=== PATIENT | female | born 1945 | race Caucasian/White ===

== ENCOUNTER 2016-11-20 12:54 | Emergency (ER) | payer MEDICARE ==
[~2016-11-20] VITALS: Ht 172.7 cm; Wt 131.5 kg
[~2016-11-20 12:54] MED LIST: ASPIRIN E.C.325 MG PO; ATENOLOL100 MG PO; CLARITIN10 MG PO; DAYPRO600 M1 PO; DULERA100 INH; GABAPENTIN300 MG PO; HYDR12.5C PO; HYDROCHLOROTH12.5 MG PO; HYDROCODONE BIT1 T11 PO; LAMICTAL100 MG PO; LASIX40 MG PO; LOMOTIL 0.025 M1 TA1 PO; LOW DOSE ASPIRI81 MG PO; MACROBID100 M1 PO; MOTRIN800 MG PO; NEURONTIN300 MG PO; NORCO 325 MG-51 TAB PO; NORFLEX100 MG PO; PERCOCET 325 MG1 TA4 PO; PHENERGAN25 M1 PO; PREDNICOT20 MG PO; TRAMADOL HCL50 MG PO; TRAMADOL HYDROC50 MG PO; VICODIN 5/500 505 MG PO; VICODIN 500 MG-1 TAB PO; VITAMIN D32000 I1 PO; VITAMIN D50000 I2 PO; ZOLOFT50 MG PO
[2016-11-20] MEDS ORDERED: NEURONTIN300 MG PO (13:13)
[2016-11-20] MEDS ORDERED: LOSARTAN POTASS50 M1 PO (13:14)
[2016-11-20] MEDS ORDERED: DULOXETINE HCL30 MG PO (13:14)
== END 2016-11-20 15:15 | disposition home or self-care (01) ==
LOC: ED 12:54
DX: S00.83XA Contusion of other part of head, initial encounter (principal); S00.81XA Abrasion of other part of head, initial encounter; M25.561 Pain in right knee; Z90.710 Acquired absence of both cervix and uterus; Z98.51 Tubal ligation status; Z79.899 Other long term (current) drug therapy; Z88.1 Allergy status to other antibiotic agents; Z96.651 Presence of right artificial knee joint; W18.09XA Striking against other object with subsequent fall, initial encounter; Y93.89 Activity, other specified; Y92.096 Garden or yard of other non-institutional residence as the place of occurrence of the external cause; Y99.9 Unspecified external cause status

== ENCOUNTER → 2016-12-18 | Outpatient (CLI) | payer MEDICARE ==
[~2016-12-18] MED LIST changes: +DULOXETINE HCL30 MG PO; +LOSARTAN POTASS50 M1 PO
== END | disposition home or self-care (01) ==
LOC: US 18:28
DX: R60.0 Localized edema (principal)

== ENCOUNTER 2017-04-05 13:53 | Inpatient (IN) | payer MEDICARE ==
[~2017-04-05] VITALS: Ht 177.8 cm; Wt 134.8 kg
--- NOTE | ~2017-04-05 | ST ---
[place], [place] EXERCISE STRESS TEST REPORT NAME: KAUR LANDON UNIT #: [id number] ROOM: 507 DOCTOR: ANTONIO KILGORE MD BIRTHDATE: [birth year] DOS: 04/06/2017 LEXISCAN STRESS EKG REPORT REFERRING PHYSICIAN: Dr. Jackson. INDICATION: Chest pain. The patient underwent standard protocol Lexiscan stress EKG. The patient's baseline EKG showed sinus bradycardia with a heart rate of [address]-T wave changes. Baseline blood pressure is 128/72. Peak heart rate was 74 with a blood pressure 110/68. The patient experienced no chest pain, no EKG changes and no arrhythmias. SUMMARY OF FINDINGS: Unremarkable Lexiscan stress EKG. Please see separate report for perfusion scan results. ANTONIO KILGORE MD CM:STRESS:EXERCISE STRESS TEST REPORT [id number] ANTONIO KILGORE MD
--- NOTE | ~2017-04-05 | PR ---
[place], [place] PROGRESS NOTE NAME: KAUR LANDON UNIT #: [id number] ROOM: 507 DOCTOR: SUSHIL MCCANN MD BIRTHDATE: [birth year] DOS: SUBJECTIVE: The patient is doing fine without any complaints. Denies any chest pains, palpitations or shortness of breath. OBJECTIVE: VITAL SIGNS: Graphic trend shows a pressure 142/68, pulse of 50, respirations 18, temperature 97.3. LUNGS: Diminished breath sounds. No wheezes, rales or rhonchi heard. HEART: Regular. ABDOMEN: Obese, soft, nontender. EXTREMITIES: Without any edema. The rebound tenderness that was noticed on the left side of the chest seems to be resolving slowly. Stress test was negative. CT of the chest showed no evidence of PE. ASSESSMENT AND PLAN: 1. Precordial chest pain. Stress test was performed, which was negative. 2. Benign hypertension, controlled. 3. Atypical chest pain, which appears to be musculoskeletal. It resolved with IV Toradol for 48 hours. The patient is advised to use ____ and local moist heat application. 4. Recent urinary tract infection. She does not need to take any more Bactrim. Urine culture final with no bacterial growth. SUSHIL MCCANN MD CM:PNTRANS [id number] SUSHIL MCCANN MD 04/08/172222 interface
--- NOTE | ~2017-04-05 | DS ---
[place], [place] DISCHARGE SUMMARY NAME: KAUR LANDON UNIT #: [id number] ROOM: 507 DOCTOR: SUSHIL MCCANN MD BIRTHDATE: [birth year] DOS: 04/08/2017 DIAGNOSES: 1. Precordial chest pain with risk factors. Because of her risk factors, the patient underwent a stress test, which was negative. 2. Atypical chest pain. 3. Benign hypertension. 4. History of urinary incontinence, bladder stimulation procedure. HOSPITAL COURSE: A 72-year-old patient who comes in with complaints of chest pain, left-sided with radiation to the back. The patient was seen in the Emergency Room. EKG showed no abnormalities. The patient was admitted, Lovenox, nitrates were started. Cardiology consultation was obtained. When I examined the patient, the symptoms appeared to be musculoskeletal with a lot of rebound tenderness over the left chest wall, so Toradol was started and local moist heat was given. The patient is stable and improved and is not having any new complaints. Stress test has come back negative. Echocardiogram is not available. CT of the chest was negative. The troponin all 3 sets were done, which were negative. Plan is to discharge her to home today. Follow up as an outpatient. SUSHIL MCCANN MD CM:DISCHARG [id number] SUSHIL MCCANN MD 04/08/17 1734 interface
--- NOTE | ~2017-04-05 | PR ---
[place], [place] PROGRESS NOTE NAME: KAUR LANDON UNIT #: [id number] ROOM: 507 DOCTOR: SUSHIL MCCANN MD BIRTHDATE: [birth year] DOS: SUBJECTIVE: The patient is doing fine without any complaint. Denies any chest pains, palpitations or shortness of breath. OBJECTIVE: VITAL SIGNS: Graphic trend shows a pressure 137/68, pulse of 68, respirations 18, temperature 98.4. LUNGS: Clear. The rebound tenderness in the chest wall appears to be much improved. HEART: Regular. ABDOMEN: Obese, soft, nontender. EXTREMITIES: Without any edema. ASSESSMENT AND PLAN: 1. Chest pain, precordial, most likely atypical, improving with Toradol to patient. 2. Benign hypertension, controlled. She does have risk factors for coronary artery disease, is awaiting a stress test this morning. Plan is to discharge her to home tomorrow. SUSHIL MCCANN MD CM:PNTRANS [id number] SUSHIL MCCANN MD 04/07/17 2333 interface
--- NOTE | ~2017-04-05 | WRIGHTHP ---
[place], [place] PATIENT HISTORY AND PHYSICAL EXAM NAME: KAUR LANDON [facility] #: [id number] UNIT #: [id number] ROOM: 507 DOCTOR: SUSHIL MCCANN MD BIRTHDATE: [birth year] DOS: 04/05/2017 HISTORY OF PRESENT ILLNESS: She is 72-year-old. The patient is very well known to us. The patient states that she started developing left-sided chest pain, radiating to her back. The pain was severe and was worried that it was her heart and so decided to come into the Emergency Room. She denies having any fever, any chills, any nausea, any emesis. Does not have any shortness of breath. She was on Bactrim, which she has taken 5 days of medicine so far and she is awaiting a bladder surgery. PAST MEDICAL HISTORY: Significant for: 1. Benign hypertension. 2. Peripheral neuropathy. 3. History of chronic gastritis. 4. Hysterectomy. 5. Bladder prolapse with chronic urinary incontinence, awaiting a bladder ____ procedure. MEDICATIONS: Breo Ellipta 100/25 one inhalation daily, aspirin 81 daily, atenolol 100 daily, vitamin D 50,000 units a week, duloxetine 30 daily, gabapentin 300 t.i.d., loratadine 10 daily, losartan 50 daily, ____ 50 at bedtime, Bactrim 1 tablet twice a day. SOCIAL HISTORY: Nonsmoker, does not use any alcohol. PHYSICAL EXAMINATION: GENERAL: She is awake and alert and oriented. VITAL SIGNS: Graphic trend shows blood pressure 130/60, pulse of 56, respirations 18, temperature 98.1. LUNGS: Clear. HEART: Regular. ABDOMEN: Obese, soft. EXTREMITIES: Without any edema. MUSCULOSKELETAL: A lot of rebound tenderness over the chest and her back area. ASSESSMENT AND PLAN: 1. Precordial chest pain. The patient has risk factors being hypertensive. The patient has had a cardiology consultation. Rule out myocardial infarction protocol has been ordered and will be scheduled for a stress test. 2. Atypical chest pain. This appears to be musculoskeletal. IV Toradol will be given for 48 hours local moist heat application will be ordered. 3. Benign hypertension, controlled. 4. Recent urinary tract infection. She has finished 5 days of antibiotics. We will discontinue Bactroban and do urine culture. [place], [place] PATIENT HISTORY AND PHYSICAL EXAM NAME: KAUR LANDON UNIT #: [id number] ROOM: 507 DOCTOR: SUSHIL MCCANN MD BIRTHDATE: [birth year] SUSHIL MCCANN MD CM:HISPHYS:PATIENT HISTORY AND PHYSICAL EXAMINATION [phone] SUSHIL MCCANN MD 04/06/172022 interface
[~2017-04-05 13:53] MED LIST changes: -ATENOLOL100 MG PO; +TENORMIN100 MG PO
[2017-04-05 14:03] VITALS: BP 176/75
[2017-04-05] MEDS ORDERED: BREO ELLIPTA 11 EACH INH (14:11)
[2017-04-05] MEDS ORDERED: VITAMIN D50000 UNIT PO ×2 (14:12→16:53)
[2017-04-05] MEDS ORDERED: [UNRECOGNIZED DRUG - REMARK] PO (14:13)
[2017-04-05 14:23] LABS: BASO # 0.1 10*3/uL (0.0-0.1); BASO % 0.7 % (0.0-1.0); EOS # 0.2 10*3/uL (0.0-0.4); EOS % 1.6 % (1.0-4.0); HEMATOCRIT 43.6 % (37.0-47.0); HEMOGLOBIN 14.1 g/dl (12.0-16.0); LYMPH # 1.2 10*3/uL (1.3-4.4); LYMPH % 11.3 % (27.0-41.0); MEAN CELL VOLUME 99.1 fl (81.0-99.0); MEAN CORPUSCULAR HGB CONC 32.3 g/dl (33.0-37.0); MEAN PLATELET VOLUME 9.6 fl (9.6-12.3); MONO # 1.1 10*3/uL (0.1-1.0); MONO % 9.9 % (3.0-9.0); NEUT # 8.2 10*3/uL (2.3-7.9); PLATELET COUNT AUTOMATED 276 10*3/uL (130-400); WHITE BLOOD COUNT 10.8 10*3/uL (4.8-10.8)
[2017-04-05 14:30] VITALS: BP 168/70
[2017-04-05 14:33] LABS: ACT PARTIAL THROMBO TIME 29.8 SECONDS (20.8-31.5)
[2017-04-05 14:39] LABS: ALBUMIN 3.3 gm/dl (3.1-4.5); ALKALINE PHOSPHATASE 78 U/L (45-117); BUN 22 mg/dl (7-24); CHLORIDE 103 mmol/L (98-107); MAGNESIUM 2.2 mg/dL (1.5-2.1); POTASSIUM 4.8 mmol/L (3.5-5.1); SGOT/AST 15 IU/L (3-35); SGPT/ALT 24 U/L (12-78); SODIUM 138 mmol/L (136-145); TOTAL PROTEIN 7.4 gm/dL (6.4-8.2)
[2017-04-05 14:45] LABS: TROPONIN I < 0.015 ng/ml (<0.045)
[2017-04-05 15:06] VITALS: BP 128/66
[2017-04-05 15:57] VITALS: BP 147/66
[2017-04-05 16:30] VITALS: BP 148/70
--- NOTE | 2017-04-05 16:35 | NUR ---
A 72, admitted to 5E, under the services of SUSHIL Schwartz MD with a diagnosis of CHEST PAIN/HTN. Chief complaint is MID STERNAL CHEST PAIN, RADIATES INTO LEFT SCAPULA/LEFT SHOULDER... CONSTANT PAIN, MORE LIKE HEAVINESS. WAS DIAPHORETIC AND NAUSEATED. Patient arrived via stretcher from ER. Monitor applied. Initial assessment completed. Vital signs taken and recorded. SUSHIL SCHWARTZ MD notified of admission to the unit. Orders received. See assessment for past medical history, medications and allergies. Patient and/or family oriented to unit. [address] visitation policy reviewed. Clothing/patient valuable form completed. JENNIFER EMMANUEL
--- NOTE | 2017-04-05 16:50 | NUR ---
MEDS VERIFIED WITH PHARMACY.
[2017-04-05] MEDS ORDERED: MYRBETRIQ50 M1 PO (16:51)
[2017-04-05] MEDS ORDERED: SEPTDS PO (16:52)
--- NOTE | 2017-04-05 17:16 | NUR ---
SPOKE WITH DR SMITH FROM CARDIOLOGY. HE ADVISED TO KEEP PATIENT NPO AFTER MIDNIGHT.
--- NOTE | 2017-04-05 17:19 | NUR ---
SPOKE WITH DR MCCANN
[2017-04-05 20:00] VITALS: BP 93/76
--- NOTE | 2017-04-05 23:39 | NUR ---
SPOKE TO AT THIS TIME REGARDING PATIENT'S REQUEST FOR PAIN MEDICATION. PER , PATIENT CAN HAVE A ONE TIME DOSE OF DILAUDID IV 0.5 MG.
[2017-04-06] VITALS (7 sets, daily range): BP systolic 114–142; BP diastolic 51–72
--- NOTE | 2017-04-06 00:10 | NUR ---
IV DILAUDID ADMINISTERED SLOWLY PER ONE TIME ORDER FOR PT C/O MOSTLY LEFT BACK SHOULDER PAIN 01/29. WILL MONITOR EFFECTIVENESS. CALL LIGHT LEFT IN REACH.
--- NOTE | 2017-04-06 00:59 | NUR ---
EARLIER MEDICATION APPEARS EFFECTIVE. PATIENT ASLEEP IN BED WITH EYES CLOSED. NO S/S OF DISTRESS NOTED. ON 3L NC. WILL MONITOR. CALL LIGHT LEFT IN REACH.
--- NOTE | 2017-04-06 08:30 | NUR ---
Commodities Broker in to talk to patient. Patient states lives at HOME with HER DAUGHTER AND 2 GRAND SONS. There are 0 steps in the home. Physician: DR MCCANN Pharmacy: [facility] Home health services: NONE Patient's level of ADLs: MINIMAL ASSIST Patient has working utilities: YES DME: [facility] HAS WALKER BUT NOT USING Follow-up physician's appointment after d/c: PREFERS TO MAKE HER OWN APPT Does patient want to access PORTAL?: Discharge plan HOME. JIGAR ACOSTA
--- NOTE | 2017-04-06 08:49 | NUR ---
PATIENT RESTING IN BED CALL LIGHT IN REACH PATIENT HAS REMAINED AFEBRILE THEROYGHOUT THE NIGHT.
--- NOTE | 2017-04-06 13:00 | NUR ---
PATIENT IS VERY STRONGLY VOCALIZING THAT SHE DOES NOT WANT A FORGEIN DR TO LOOK AT THER LEG PATIENT STATED " I WILL STAND UP ON THIS DAMN LEG AND CRACK THAT SON OF A BIN THE FHEAD WITH THIS THING. I AM TIRED OF THESE DOCOTRS THEY DON'T KNOW WHAT THE H THEY ARE DOING" I TRIED TO EXPLAIN TO THE PATIENT THAT SHE HAS NOT SEEN DR HUYNH YET AND HE WAS VERY NICE AND A GREAT DOCTOR. PATIENT TOLD ME "YOU GO STRAIGHT TO [facility]"
--- NOTE | 2017-04-06 14:54 | NUR ---
CONTACTED DR ADAM REGARDING THE PATIENT NOT WANTING A FORGEIN DOCOTR SEEING HER. I REQUESTED THAT DR KANG BE CONSULTED DR ADAM INFORMED ME THAT DR KANG WAS NOT MANAGER FORMS TOMORROW I NOTIFIED HER THAT HE WAS IN SURGERY AND HE WAS AVAILABLE. DR ADAM STATED THAT THAT ORIGINALLY DIDN'T WANT TO CONSULT SURGERY BUT AT THIS TIME DR HUYNH IS GOING TO SEE THE PATIENT IN THE MORNING. HE IS AWARE OF THE PATIENT AND HER STATUS
--- NOTE | 2017-04-06 20:00 | NUR ---
RESTING IN BED WITH EYES CLOSED. RESPIRATIONS EASY. LUNGS DIMINISHED, CLEAR. PULSE OX 96% 2L, O2 REMOVED AT PATIENT REQUEST SHE DOES NOT USE AT HOME AND DENIES SOB. DENIES PAIN AT PRESENT. CALL LIGHT WITHIN REACH. NO VOICED COMPLAINTS
--- NOTE | 2017-04-06 22:00 | NUR ---
REFUSED [id number]
[2017-04-07] VITALS: BP 125/61
--- NOTE | 2017-04-07 | NUR ---
RESTING WITH EYES CLOSED. RESPIRATIONS EASY. VSS. PULSE OX 94% RA. CALL LIGHT WITHIN REACH. NPO STATUS MAINTAINED FOR TESTING
--- NOTE | 2017-04-07 03:00 | NUR ---
SLEPT THROUGHOUT NIGHT WITH NO DISTRESS NOTED. RESPIRATIONS EASY. VSS. NPO STATUS MAINTAINED FOR TESTING THIS AM.
--- NOTE | 2017-04-07 06:00 | NUR ---
SLEPT THROUGHOUT NIGHT. NO VOICED COMPLAINTS. NO DISTRESS NOTED
[2017-04-07 08:00] VITALS: BP 142/66
--- NOTE | 2017-04-07 11:30 | NUR ---
PATIENT DOWN TO CARDIOLOGY FOR STRESS TEST
--- NOTE | 2017-04-07 11:45 | NUR ---
INFORMED CONSENT OBTAINED FOR LEXISCAN NUCLEAR STRESS TEST WITH DR. KILGORE. RESTING EKG SINUS ALEXIS WITH A RESTING HR OF 50 WITH BP OF 128/72. LUNGS CLEAR WITH SPO2 OF 95% ON ROOM AIR. PT COMPLETED A 1:00 LEXISCAN PROTOCOL RECEIVING LEXISCAN 0.4 MG IV OVER 10 SECONDS. HAD NO CHEST PAIN OR ANY EKG CHANGES. DID HAVE C/O "STOMACH DISCOMFORT" THAT WAS RELIEVED IN RECOVERY. HAD A PEAK HR OF 74 WITH BP OF 110/70. LAST RECOVERY HR OF 68 WITH BP OF 110/68. AWAITING SCANNING IN STABLE CONDITION.
[2017-04-07 13:30] VITALS: BP 137/68
--- NOTE | 2017-04-07 14:00 | NUR ---
PATIENT RETURNED TO THE FLOOR. NO PROBLEMS NOTED
[2017-04-07 16:00] VITALS: BP 128/70
--- NOTE | 2017-04-07 17:30 | NUR ---
PATIENT WITH LEAKING IV SITE. NEW IV SITE PLACED IN RIGHT AC, CLEANED WITH CHLOROPREP, 20 GA ANGIOCATH, AND SECURED WITH TAPE. IV LEFT ARM REMOVED, NO BLEEDING NOTED DRESSING PLACED.
--- NOTE | 2017-04-07 17:45 | NUR ---
PATIENT TO CT FOR CT OF THE CHEST. IV PLACED IN RIGHT AC
--- NOTE | 2017-04-07 18:00 | NUR ---
PATIENT RETURNED TO THE FLOOR, NO PROBLEMS NOTED
[2017-04-07 20:00] VITALS: BP 129/58
--- NOTE | 2017-04-07 20:00 | NUR ---
PT. AWAKE, ALERT, AND ORIENTED X 3. PT. LYING IN BED AT THIS TIME. PT. DENIES SOB, CP. C/O 2/10 PAIN TO LEFT SHOULDER AREA, K-PAD CURRENTLY BEING USED. CALL LIGHT WITHIN REACH, BED IN LOWEST POSITION, WHEELS LOCKED. SEE SHIFT ASSESSMENT.
[2017-04-08] VITALS: BP 103/50
--- NOTE | 2017-04-08 05:54 | NUR ---
PT. WAS TACHYCARDIC UPON MOVING. ORTHOS PERFORMED AT THIS TIME WAS NEGATIVE.
[2017-04-08 06:21] LABS: BASO # 0.1 10*3/uL (0.0-0.1); BASO % 0.8 % (0.0-1.0); EOS # 0.3 10*3/uL (0.0-0.4); EOS % 3.7 % (1.0-4.0); HEMATOCRIT 43.4 % (37.0-47.0); HEMOGLOBIN 14.1 g/dl (12.0-16.0); LYMPH # 1.3 10*3/uL (1.3-4.4); MEAN CELL VOLUME 100.5 fl (81.0-99.0); MEAN CORPUSCULAR HGB 32.6 pg (27.0-31.0); MEAN CORPUSCULAR HGB CONC 32.5 g/dl (33.0-37.0); MONO # 0.7 10*3/uL (0.1-1.0); MONO % 9.7 % (3.0-9.0); NEUT # 5.2 10*3/uL (2.3-7.9); NEUT % 68.4 % (47.0-73.0); PLATELET COUNT AUTOMATED 273 10*3/uL (130-400); RED BLOOD COUNT 4.32 10*6/uL (4.10-5.10); RED CELL DISTRI WIDTH 14.9 % (0-14.5); WHITE BLOOD COUNT 7.7 10*3/uL (4.8-10.8)
[2017-04-08 06:53] LABS: CREATININE 0.83 mg/dL (0.55-1.02)
[2017-04-08 08:00] VITALS: BP 142/68
--- NOTE | 2017-04-08 10:58 | NUR ---
CCDIS Discharge instructions reviewed with patient/family. Patient receptive and verbalizes understanding. Follow-up care arranged. Written instructions given to patient/family. ALBAN TERAN
== END 2017-04-08 10:58 | disposition home or self-care (01) | DRG 313 ==
LOC: ED 13:53 → EDHOLD 15:26 → 5E 15:26
PROVIDERS: Emergency Medicine; ADMIT Internal Medicine
PROC: 4A02XM4 Measurement of Cardiac Total Activity, External Approach (ICD-10-PCS; principal; 2017-04-07)
PROC: 3E073KZ Introduction of Other Diagnostic Substance into Coronary Artery, Percutaneous Approach (ICD-10-PCS; principal; 2017-04-07)
DX: R07.89 Other chest pain (principal); I10 Essential (primary) hypertension; R07.2 Precordial pain; R32 Unspecified urinary incontinence; K29.50 Unspecified chronic gastritis without bleeding; Z90.710 Acquired absence of both cervix and uterus; Z88.1 Allergy status to other antibiotic agents; Z98.51 Tubal ligation status; Z82.49 Family history of ischemic heart disease and other diseases of the circulatory system; Z83.3 Family history of diabetes mellitus; Z87.440 Personal history of urinary (tract) infections; Z79.899 Other long term (current) drug therapy

== ENCOUNTER 2017-04-15 11:46 | Emergency (ER) | payer MEDICARE ==
[~2017-04-15] VITALS: Ht 177.8 cm; Wt 136.1 kg
[~2017-04-15 11:46] MED LIST changes: +BREO ELLIPTA 11 EACH INH; +MYRBETRIQ50 M1 PO; +SEPTDS PO; +VITAMIN D50000 UNIT PO; +[UNRECOGNIZED DRUG - REMARK] PO
== END 2017-04-15 14:48 | disposition home or self-care (01) ==
LOC: ED 11:46
DX: S92.335A Nondisplaced fracture of third metatarsal bone, left foot, initial encounter for closed fracture (principal); M25.572 Pain in left ankle and joints of left foot; Z88.1 Allergy status to other antibiotic agents; Z88.8 Allergy status to other drugs, medicaments and biological substances; Z90.710 Acquired absence of both cervix and uterus; Z90.49 Acquired absence of other specified parts of digestive tract; W20.8XXA Other cause of strike by thrown, projected or falling object, initial encounter; Y93.89 Activity, other specified; Y92.89 Other specified places as the place of occurrence of the external cause; Y99.8 Other external cause status

== ENCOUNTER → 2017-11-04 | Outpatient (CLI) | payer OTHER | END | disposition home or self-care (01) | LOC: MAMMO 09:34 | DX: Z12.31 Encounter for screening mammogram for malignant neoplasm of breast (principal) ==

== ENCOUNTER 2017-11-18 11:47 | Emergency (ER) | payer OTHER ==
[~2017-11-18] VITALS: Ht 175.2 cm; Wt 136.1 kg
== END 2017-11-18 14:20 | disposition home or self-care (01) ==
LOC: ED 11:47
DX: S09.90XA Unspecified injury of head, initial encounter (principal); I10 Essential (primary) hypertension; Z88.1 Allergy status to other antibiotic agents; Z79.899 Other long term (current) drug therapy; W01.0XXA Fall on same level from slipping, tripping and stumbling without subsequent striking against object, initial encounter; Y93.89 Activity, other specified; Y92.89 Other specified places as the place of occurrence of the external cause; Y99.8 Other external cause status

== ENCOUNTER → 2017-12-07 | Outpatient (CLI) | payer OTHER ==
[2017-12-07 10:29] LABS: CREATININE 0.83 mg/dL (0.55-1.02)
== END ==
LOC: LAB 09:36
PROVIDERS: Internal Medicine
DX: Z31.83 Encounter for assisted reproductive fertility procedure cycle (principal); R06.02 Shortness of breath

== ENCOUNTER → 2017-12-08 | Outpatient (CLI) | payer OTHER | END | disposition home or self-care (01) | LOC: US 12:50 | DX: I73.9 Peripheral vascular disease, unspecified (principal); M79.89 Other specified soft tissue disorders ==

== ENCOUNTER → 2017-12-11 | Outpatient (CLI) | payer OTHER | END | disposition home or self-care (01) | LOC: CT 12-08 14:00 | DX: R06.02 Shortness of breath (principal); R05 Cough; Z75.0 Medical services not available in home; Z90.710 Acquired absence of both cervix and uterus; Z90.49 Acquired absence of other specified parts of digestive tract ==

== ENCOUNTER → 2017-12-17 | Outpatient (CLI) | payer OTHER | END | disposition home or self-care (01) | LOC: CARD 01:01 | DX: I34.8 Other nonrheumatic mitral valve disorders (principal) ==

== ENCOUNTER 2018-01-06 13:04 | Inpatient (IN) | payer OTHER ==
[2018-01-06] VITALS (7 sets, daily range): BP systolic 125–152; BP diastolic 47–64
[~2018-01-06] VITALS: Ht 152.4 cm; Wt 140.2 kg
--- NOTE | ~2018-01-06 | CON ---
[place], [place] REPORT OF CONSULTATION NAME: KAUR LANDON UNIT #: [id number] ROOM: 505 DOCTOR: ANGELO DELATORRE MD BIRTHDATE: [birth year] DOS: 01/07/2018 HISTORY OF PRESENT ILLNESS: This is a 73-year-old -[place] woman with a history of hypertension, morbid obesity who has never had a heart attack or heart failure or stroke. She has never had cancer or COPD. She does have DJD and had hip replacement in the remote past and has had urinary incontinence. She does not smoke. She has never smoked cigarettes, does not use alcoholic beverages. She developed left arm pain 2 days ago and through the night, she had problems because when she moved her left shoulder, it however heard more. Yesterday morning, it was bothering her much more and it went to the left anterior part of the chest. She has never had this kind of symptom before and never had any chest pain or palpitation with exertion, but does have shortness of breath with exertion because of morbid obesity. She has not had any PND, orthopnea, or swelling of the lower extremities and no loss of consciousness. HOME MEDICATIONS: Included Breo-Ellipta, aspirin, atenolol 100 mg daily, duloxetine 30 mg daily, furosemide 40 mg daily, gabapentin 300 t.i.d., loratadine 10 mg daily, losartan 50 daily and Mirabegron 50 mg daily. PHYSICAL EXAMINATION: GENERAL: The patient who is moderately obese. She is alert, oriented, not in any distress complexion is fine. There is no cyanosis or jaundice. VITAL SIGNS: Pulse is 60 regular, blood pressure 140/71. NECK: Normal JVP. No bruit in the neck. HEART: There is no cardiomegaly, no murmurs are present. EXTREMITIES: Pedal pulses are palpable. She has 1+ pretibial edema. RESPIRATORY: Breath sounds are diminished mildly, but no adventitious sounds are present. ABDOMEN: Large and supple. LABORATORY DATA: Three ECGs have shown normal sinus rhythm with a complete right bundle-branch block and mild left axis deviation, but no ST-T wave abnormality. Troponin I levels are also normal. I looked at the chest x-ray and it is under penetrated picture and I do not think there is any obvious pulmonary congestion. IMPRESSION: This patient with some risk factors for coronary artery disease, had very atypical chest pain. Her anterior part of the left shoulder is quite tender. I think there may be mild bicipital tendinitis as well. She has atypical chest pain and I think this is probably noncardiac. A Lexiscan Cardiolite study was performed today and I will take a look at the images and further decision will be made upon the findings. I thank you for this consult. [place], [place] REPORT OF CONSULTATION NAME: KAUR LANDON UNIT #: [id number] ROOM: [facility] DOCTOR: ANGELO DELATORRE MD BIRTHDATE: [birth year] ANGELO DELATORRE MD CM:CONSTR:REPORT OF CONSULTATION 1139 01/07/18 192 interface
--- NOTE | ~2018-01-06 | WRIGHTHP ---
[place], [place] PATIENT HISTORY AND PHYSICAL EXAM [id number] UNIT #: [id number] ROOM: 505 DOCTOR: SUSHIL MCCANN MD BIRTHDATE: [birth year] DOS: 01/06/2018 HISTORY OF PRESENT ILLNESS: The patient is 72 years old, very well known to me, comes in with complaints of chest pain. 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 The patient denies having any nausea, any emesis, any fever or chills, does not have any cough or sputum production. She did not get any relief up to come into the Emergency Room, but with Toradol, the pain did get better. PAST MEDICAL HISTORY: Significant for; 1. History of chest pain with negative workup in March 2017. 2. Benign hypertension. 3. Urinary incontinence. 4. History of bladder scan procedure. 5. History of hysterectomy. 6. History of degenerative joint disease, status post hip replacement. 7. History of LVH. 8. History of peripheral neuropathy, history of falls. MEDICATIONS: She is currently on are aspirin 81 daily, atenolol 100 daily, duloxetine 30 daily, Lasix 40 daily, gabapentin 300 t.i.d., loratadine 10 daily, losartan 50 daily, Myrbetriq 50 at bedtime. SOCIAL HISTORY: Nonsmoker, does not use any alcohol. PHYSICAL EXAMINATION: GENERAL: The patient is awake and alert and oriented. VITAL SIGNS: Graphic trend shows a pressure 143/56, pulse of 50, respirations 20, temperature 98.2. LUNGS: Diminished breath sounds. No wheezes, rales or rhonchi heard. HEART: Regular. ABDOMEN: Obese, soft, nontender. EXTREMITIES: Without any edema or rash noticed in the right leg, which is red and raised. ASSESSMENT AND PLAN: 1. Precordial chest pain, rule out myocardial infarction protocol was initiated. Cardiology consultation. Echocardiogram was done recently, which was within normal limits. The patient is scheduled for a stress test. We will wait and see what the stress shows for further treatment plan. 2. Benign hypertension, controlled. 3. Generalized anxiety disorder. The patient has been under the major stressor recently, could be precipitated with event. A low dose of Xanax was given. [place], [place] PATIENT HISTORY AND PHYSICAL EXAM NAME: KAUR LANDON UNIT #: [id number] ROOM: [facility] DOCTOR: SUSHIL MCCANN MD BIRTHDATE: [birth year] SUSHIL MCCANN MD CM:HISPHYS:PATIENT HISTORY AND PHYSICAL EXAMINATION 0 2 SUSHIL MCCANN MD 01/07/18 0832 interface
--- NOTE | ~2018-01-06 | EKG ---
[place], [place] ELECTROCARDIOGRAM REPORT NAME: KAUR LANDON UNIT #: [id number] ROOM: [facility] DOCTOR: FIDELINA DRAFT REPORT BIRTHDATE: [birth year] [facility] Test Date: 2018-01-06 Test Time: 15:27:38 Pat Name: KAUR LANDON Department: Room: Gender: F [employer]: : 1945 Requested By: GINGER ORDAZ Order Number: [id number] Reading MD: Stu Reed MD Measurements Intervals [place] Rate: 53 P: 17 HI: 181 QRS: -27 QRSD: 143 T: 7 QT: 445 QTc: 418 Interpretive Statements Sinus rhythm Atrial premature complexes Right bundle branch block Left ventricular hypertrophy Electronically Signed On 01-12-2018 4:41:26 PDT by Stu Reed MD CM:EKGRPT:ELECTROCARDIOGRAM REPORT [id number] GINGER KITCHEN DRAFT REPORT GINGER ORDAZ MD
--- NOTE | ~2018-01-06 | EKG ---
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
--- NOTE | ~2018-01-06 | ST ---
[place], [place] EXERCISE STRESS TEST REPORT NAME: KAUR LANDON UNIT #: [id number] ROOM: [facility] DOCTOR: SUSHIL MCCANN MD BIRTHDATE: [birth year] DOS: LEXISCAN STRESS TEST REASON: Evaluation of chest pain. DESCRIPTION OF PROCEDURE: After explaining procedure and obtaining consent, the patient was subjected to Jesus protocol. Resting heart rate was 74 with a blood pressure of 162/84. EKG showed sinus, nonspecific ST-T wave changes. The patient did not have any arrhythmias or chest pain during the infusion. After Lexiscan infusion was over, the patient was injected with Cardiolite and stress images were taken. ASSESSMENT AND PLAN: Lexiscan stress test without any ST-T wave changes. Cardiolite images pending. SUSHIL MCCANN MD CM:STRESS:EXERCISE STRESS TEST REPORT [id number] SUSHIL MCCANN MD
--- NOTE | ~2018-01-06 | EKG ---
[place], [place] ELECTROCARDIOGRAM REPORT NAME: KAUR LANDON UNIT #: [id number] ROOM: [facility] DOCTOR: FIDELINA DRAFT REPORT BIRTHDATE: [birth year] [facility] Test Date: 2018-01-06 Test Time: 13:08:48 Pat Name: KAUR LANDON Department: Room: Gender: F Emergency Communications Dispatcher: : 1945 Requested By: GINGER ORDAZ Order Number: [id number] Reading MD: Stu Reed MD Measurements Intervals [place] Rate: 62 P: 19 LA: 178 QRS: -33 QRSD: 144 T: 7 QT: 425 QTc: 432 Interpretive Statements Sinus rhythm Right bundle branch block Left ventricular hypertrophy Electronically Signed On 01-12-2018 4:41:12 PDT by Stu Reed MD CM:EKGRPT:ELECTROCARDIOGRAM REPORT [id number] GINGER KITCHEN DRAFT REPORT GINGER ORDAZ MD
[2018-01-06 13:30] LABS: BASO # 0.1 10*3/uL (0.0-0.1); BASO % 0.8 % (0.0-1.0); EOS # 0.2 10*3/uL (0.0-0.4); EOS % 3.2 % (1.0-4.0); HEMATOCRIT 40.3 % (37.0-47.0); HEMOGLOBIN 13.1 g/dl (12.0-16.0); LYMPH # 1.4 10*3/uL (1.3-4.4); LYMPH % 18.7 % (27.0-41.0); MEAN CELL VOLUME 97.3 fl (81.0-99.0); MEAN CORPUSCULAR HGB 31.6 pg (27.0-31.0); MEAN CORPUSCULAR HGB CONC 32.5 g/dl (33.0-37.0); MEAN PLATELET VOLUME 10.1 fl (9.6-12.3); MONO # 0.7 10*3/uL (0.1-1.0); MONO % 9.6 % (3.0-9.0); NEUT % 67.6 % (47.0-73.0); PLATELET COUNT AUTOMATED 235 10*3/uL (130-400); RED BLOOD COUNT 4.14 10*6/uL (4.10-5.10); RED CELL DISTRI WIDTH 15.3 % (0-14.5); WHITE BLOOD COUNT 7.5 10*3/uL (4.8-10.8)
[2018-01-06 13:39] LABS: ACT PARTIAL THROMBO TIME 27.3 SECONDS (20.8-31.5)
[2018-01-06 13:49] LABS: ALBUMIN 3.6 gm/dl (3.1-4.5); ALKALINE PHOSPHATASE 64 U/L (45-117); BUN 20 mg/dl (7-24); CHLORIDE 106 mmol/L (98-107); POTASSIUM 4.4 mmol/L (3.5-5.1); SGOT/AST 14 IU/L (3-35); SGPT/ALT 22 U/L (12-78); SODIUM 140 mmol/L (136-145); TOTAL PROTEIN 7.2 gm/dL (6.4-8.2)
[2018-01-06 13:52] LABS: TROPONIN I < 0.015 ng/ml (<0.045)
[2018-01-06] MEDS ORDERED: LASIX40 MG PO (17:55)
[2018-01-07] VITALS: BP 143/66
[2018-01-07 04:00] VITALS: BP 144/94
[2018-01-07 08:00] VITALS: BP 144/71
[2018-01-07 12:00] VITALS: BP 154/72
[2018-01-07 16:00] VITALS: BP 140/63
== END 2018-01-07 17:06 | disposition home or self-care (01) | DRG 313 ==
LOC: ED 13:04 → 5E 16:24 → EDHOLD 16:24 → 5E 17:18
PROVIDERS: Emergency Medicine
PROC: 3E073KZ Introduction of Other Diagnostic Substance into Coronary Artery, Percutaneous Approach (ICD-10-PCS; principal; 2018-01-07)
PROC: 4A02XM4 Measurement of Cardiac Total Activity, External Approach (ICD-10-PCS; principal; 2018-01-07)
DX: R07.89 Other chest pain (principal); G62.9 Polyneuropathy, unspecified; F41.1 Generalized anxiety disorder; I10 Essential (primary) hypertension; M19.90 Unspecified osteoarthritis, unspecified site; Z88.1 Allergy status to other antibiotic agents; Z79.82 Long term (current) use of aspirin; Z79.899 Other long term (current) drug therapy; Z90.710 Acquired absence of both cervix and uterus; Z82.49 Family history of ischemic heart disease and other diseases of the circulatory system; Z83.3 Family history of diabetes mellitus; Z82.3 Family history of stroke; M75.22 Bicipital tendinitis, left shoulder

== ENCOUNTER 2018-01-27 12:55 | Emergency (ER) | payer OTHER ==
[~2018-01-27] VITALS: Ht 175.2 cm; Wt 137.9 kg
[2018-01-27 13:24] LABS: BASO % 0.5 % (0.0-1.0); EOS # 0.1 10*3/uL (0.0-0.4); EOS % 1.7 % (1.0-4.0); HEMATOCRIT 42.2 % (37.0-47.0); HEMOGLOBIN 13.8 g/dl (12.0-16.0); LYMPH % 12.9 % (27.0-41.0); MEAN CELL VOLUME 96.6 fl (81.0-99.0); MEAN CORPUSCULAR HGB 31.6 pg (27.0-31.0); MEAN CORPUSCULAR HGB CONC 32.7 g/dl (33.0-37.0); MEAN PLATELET VOLUME 9.9 fl (9.6-12.3); MONO # 0.7 10*3/uL (0.1-1.0); MONO % 9.2 % (3.0-9.0); NEUT # 5.9 10*3/uL (2.3-7.9); NEUT % 75.3 % (47.0-73.0); PLATELET COUNT AUTOMATED 230 10*3/uL (130-400); RED BLOOD COUNT 4.37 10*6/uL (4.10-5.10); RED CELL DISTRI WIDTH 14.7 % (0-14.5); WHITE BLOOD COUNT 7.8 10*3/uL (4.8-10.8)
[2018-01-27 13:32] LABS: ACT PARTIAL THROMBO TIME 28.3 SECONDS (20.8-31.5)
[2018-01-27 13:40] LABS: ALBUMIN 3.1 gm/dl (3.1-4.5); ALKALINE PHOSPHATASE 58 U/L (45-117); BUN 11 mg/dl (7-24); CHLORIDE 103 mmol/L (98-107); CREATININE 0.81 mg/dL (0.55-1.02); POTASSIUM 4.1 mmol/L (3.5-5.1); SGOT/AST 12 IU/L (3-35); SGPT/ALT 13 U/L (12-78); SODIUM 138 mmol/L (136-145); TOTAL PROTEIN 7.3 gm/dL (6.4-8.2)
[2018-01-27] MEDS ORDERED: INDOMETHACIN25 M1 PO (16:04)
== END 2018-01-27 16:06 | disposition home or self-care (01) ==
LOC: ED 12:55
PROVIDERS: Emergency Medicine
DX: M79.672 Pain in left foot (principal); R26.2 Difficulty in walking, not elsewhere classified; M10.9 Gout, unspecified; I10 Essential (primary) hypertension; Z88.1 Allergy status to other antibiotic agents; Z79.899 Other long term (current) drug therapy; Z79.82 Long term (current) use of aspirin

== ENCOUNTER → 2018-03-15 | Outpatient (CLI) | payer OTHER ==
[~2018-03-15] MED LIST changes: +INDOMETHACIN25 M1 PO
== END ==
LOC: CT 02-26 10:00
DX: M19.012 Primary osteoarthritis, left shoulder (principal); M25.712 Osteophyte, left shoulder

== ENCOUNTER → 2019-02-16 | Outpatient (CLI) | payer OTHER ==
[2019-02-16 10:19] LABS: BASO # 0.1 10*3/uL (0.0-0.1); BASO % 0.9 % (0.0-1.0); EOS # 0.3 10*3/uL (0.0-0.4); EOS % 4.1 % (1.0-4.0); HEMATOCRIT 45.1 % (37.0-47.0); HEMOGLOBIN 14.7 g/dl (12.0-16.0); LYMPH # 1.3 10*3/uL (1.3-4.4); LYMPH % 16.7 % (27.0-41.0); MEAN CELL VOLUME 98.5 fl (81.0-99.0); MEAN CORPUSCULAR HGB 32.1 pg (27.0-31.0); MEAN CORPUSCULAR HGB CONC 32.6 g/dl (33.0-37.0); MEAN PLATELET VOLUME 10.2 fl (9.6-12.3); MONO # 0.8 10*3/uL (0.1-1.0); NEUT # 5.2 10*3/uL (2.3-7.9); NEUT % 67.9 % (47.0-73.0); PLATELET COUNT AUTOMATED 283 10*3/uL (130-400); RED BLOOD COUNT 4.58 10*6/uL (4.10-5.10); RED CELL DISTRI WIDTH 15.2 % (0-14.5); WHITE BLOOD COUNT 7.7 10*3/uL (4.8-10.8)
[2019-02-16 10:44] LABS: ALBUMIN 3.5 gm/dl (3.1-4.5); ALKALINE PHOSPHATASE 86 U/L (45-117); BUN 32 mg/dl (7-24); CHLORIDE 106 mmol/L (98-107); CHOLESTEROL 189 mg/dL (<200); CREATININE 0.82 mg/dL (0.55-1.02); FREE T4 0.93 ng/dl (0.76-1.46); HDL CHOLESTEROL 53 mg/dl (40-60); LDL CHOLESTEROL 120 mg/dL (9-159); POTASSIUM 4.7 mmol/L (3.5-5.1); SGOT/AST 15 IU/L (3-35); SGPT/ALT 29 U/L (12-78); SODIUM 138 mmol/L (136-145); TOTAL PROTEIN 7.8 gm/dL (6.4-8.2); TRIGLYCERIDES 80 mg/dl (<150); VLDL CHOLESTEROL 16 mg/dL (6-40)
[2019-02-16 11:19] LABS: VITAMIN D, 25-HYDROXY 21.1 ng/mL (30-100)
== END | disposition home or self-care (01) ==
LOC: LAB 09:17
PROVIDERS: Internal Medicine
DX: E55.9 Vitamin D deficiency, unspecified (principal); I10 Essential (primary) hypertension; E11.9 Type 2 diabetes mellitus without complications; E03.9 Hypothyroidism, unspecified; D51.9 Vitamin B12 deficiency anemia, unspecified; D52.9 Folate deficiency anemia, unspecified

== ENCOUNTER → 2019-02-17 | Outpatient (CLI) | payer OTHER | END | disposition home or self-care (01) | LOC: MAMMO 00:56 | DX: Z12.31 Encounter for screening mammogram for malignant neoplasm of breast (principal) ==

== ENCOUNTER 2019-03-15 11:34 | Emergency (ER) | payer OTHER ==
[~2019-03-15] VITALS: Ht 175.2 cm; Wt 142.9 kg
[2019-03-15] MEDS ORDERED: CYCLOBENZAPRINE10 MG PO (13:31)
[2019-03-15] MEDS ORDERED: NAPROSYN500 MG PO (13:31)
[2019-03-15] MEDS ORDERED: MEDROL DOSEPAK4 MG PO (13:31)
== END 2019-03-15 13:36 | disposition home or self-care (01) ==
LOC: ED 11:34
DX: S39.012A Strain of muscle, fascia and tendon of lower back, initial encounter (principal); S16.1XXA Strain of muscle, fascia and tendon at neck level, initial encounter; Z90.710 Acquired absence of both cervix and uterus; Z98.51 Tubal ligation status; Z79.899 Other long term (current) drug therapy; Z79.82 Long term (current) use of aspirin; Z88.1 Allergy status to other antibiotic agents; V49.88XA Car occupant (driver) (passenger) injured in other specified transport accidents, initial encounter; Y93.89 Activity, other specified; Y92.413 State road as the place of occurrence of the external cause; Y99.9 Unspecified external cause status

== ENCOUNTER → 2019-04-07 | Outpatient (CLI) | payer OTHER ==
[~2019-04-07] MED LIST changes: +CYCLOBENZAPRINE10 MG PO; +MEDROL DOSEPAK4 MG PO; +NAPROSYN500 MG PO
== END | disposition home or self-care (01) ==
LOC: CT 08:49
DX: G93.89 Other specified disorders of brain (principal)

== ENCOUNTER → 2019-04-18 | Outpatient (CLI) | payer OTHER ==
[2019-04-18 14:57] LABS: BUN 19 mg/dl (7-24); CHLORIDE 105 mmol/L (98-107); CREATININE 0.83 mg/dL (0.55-1.02); POTASSIUM 3.9 mmol/L (3.5-5.1); SODIUM 139 mmol/L (136-145)
== END | disposition home or self-care (01) ==
LOC: LAB 13:17 → US 14:00
PROVIDERS: Internal Medicine Critical Care Medicine
DX: I10 Essential (primary) hypertension (principal); R42 Dizziness and giddiness

== ENCOUNTER → 2019-08-03 | Outpatient (CLI) | payer OTHER | END | disposition home or self-care (01) | LOC: CT 07-27 09:00 | DX: M51.36 Other intervertebral disc degeneration, lumbar region (principal) ==

== ENCOUNTER → 2020-02-10 | Outpatient (CLI) | payer OTHER ==
[~2020-02-10] MED LIST changes: +NORVASC5 MG PO
== END | disposition home or self-care (01) ==
LOC: COVID19 00:55
DX: Z20.828 Contact with and (suspected) exposure to other viral communicable diseases (principal)

== ENCOUNTER → 2020-02-17 | Day surgery (SDC) | payer OTHER ==
[~2020-02-17] VITALS: Ht 175.2 cm; Wt 140.6 kg
[2020-02-17 08:21] VITALS: BP 145/54
[2020-02-17 09:26] VITALS: BP 113/52
[2020-02-17 09:41] VITALS: BP 121/66
[2020-02-17 09:56] VITALS: BP 113/65
== END | disposition home or self-care (01) ==
LOC: SDC 02-13 11:00
PROVIDERS: ATTEND Internal Medicine Gastroenterology
DX: R19.4 Change in bowel habit (principal); K57.30 Diverticulosis of large intestine without perforation or abscess without bleeding; I10 Essential (primary) hypertension; M10.9 Gout, unspecified; G47.30 Sleep apnea, unspecified; M19.90 Unspecified osteoarthritis, unspecified site; J45.909 Unspecified asthma, uncomplicated; F41.9 Anxiety disorder, unspecified; F32.9 Major depressive disorder, single episode, unspecified; Z86.010 Personal history of colon polyps; Z98.890 Other specified postprocedural states; Z88.8 Allergy status to other drugs, medicaments and biological substances; Z79.899 Other long term (current) drug therapy; Z83.3 Family history of diabetes mellitus; Z82.49 Family history of ischemic heart disease and other diseases of the circulatory system; Z82.3 Family history of stroke

== ENCOUNTER 2020-10-22 13:46 | Emergency (ER) | payer MEDICARE ==
[~2020-10-22] VITALS: Ht 175.2 cm; Wt 143.8 kg
[2020-10-22 15:38] LABS: BASO % 0.5 % (0.0-1.0); EOS # 0.4 10*3/uL (0.0-0.4); EOS % 4.9 % (1.0-4.0); HEMATOCRIT 41.3 % (37.0-47.0); LYMPH # 1.5 10*3/uL (1.3-4.4); MEAN CELL VOLUME 97.9 fl (81.0-99.0); MEAN CORPUSCULAR HGB CONC 31.7 g/dl (33.0-37.0); MEAN PLATELET VOLUME 10.1 fl (9.6-12.3); MONO # 0.7 10*3/uL (0.1-1.0); MONO % 9.1 % (3.0-9.0); NEUT # 5.2 10*3/uL (2.3-7.9); NEUT % 66.2 % (47.0-73.0); PLATELET COUNT AUTOMATED 228 10*3/uL (130-400); RED BLOOD COUNT 4.22 10*6/uL (4.10-5.10); RED CELL DISTRI WIDTH 14.8 % (0-14.5); WHITE BLOOD COUNT 7.9 10*3/uL (4.8-10.8)
[2020-10-22 16:10] LABS: ALBUMIN 3.2 gm/dl (3.1-4.5); ALKALINE PHOSPHATASE 81 U/L (45-117); BUN 14 mg/dl (7-24); CHLORIDE 106 mmol/L (98-107); CREATININE 0.92 mg/dL (0.55-1.02); SGOT/AST 13 IU/L (3-35); SGPT/ALT 20 U/L (12-78); SODIUM 138 mmol/L (136-145); TOTAL PROTEIN 7.3 gm/dL (6.4-8.2)
[2020-10-22 16:12] LABS: TROPONIN I < 0.015 ng/ml (<0.045)
[2020-10-22] MEDS ORDERED: CYCLOBENZAPRINE10 MG PO (16:59)
[2020-10-22] MEDS ORDERED: PREDNISONE50 MG PO (16:59)
== END 2020-10-22 17:50 | disposition home or self-care (01) ==
LOC: ED 13:46
PROVIDERS: Family Medicine
DX: S16.1XXA Strain of muscle, fascia and tendon at neck level, initial encounter (principal); M47.812 Spondylosis without myelopathy or radiculopathy, cervical region; Z88.8 Allergy status to other drugs, medicaments and biological substances; Z79.899 Other long term (current) drug therapy; Z98.890 Other specified postprocedural states; Z90.711 Acquired absence of uterus with remaining cervical stump; X58.XXXA Exposure to other specified factors, initial encounter; Y93.89 Activity, other specified; Y92.89 Other specified places as the place of occurrence of the external cause; Y99.8 Other external cause status

== ENCOUNTER 2020-10-31 21:53 | Inpatient (IN) | payer MEDICARE ==
[~2020-10-31] VITALS: Ht 175.2 cm; Wt 143.9 kg
[~2020-10-31 21:53] MED LIST changes: +PREDNISONE50 MG PO
[2020-10-31 22:04] VITALS: BP 132/66
[2020-10-31 22:20] LABS: BASO % 0.2 % (0.0-1.0); EOS # 0.2 10*3/uL (0.0-0.4); HEMATOCRIT 42.9 % (37.0-47.0); LYMPH # 1.8 10*3/uL (1.3-4.4); LYMPH % 22.1 % (27.0-41.0); MEAN CELL VOLUME 93.9 fl (81.0-99.0); MEAN CORPUSCULAR HGB 31.1 pg (27.0-31.0); MEAN CORPUSCULAR HGB CONC 33.1 g/dl (33.0-37.0); MEAN PLATELET VOLUME 10.2 fl (9.6-12.3); MONO # 0.9 10*3/uL (0.1-1.0); MONO % 11.6 % (3.0-9.0); NEUT # 5.1 10*3/uL (2.3-7.9); NEUT % 63.6 % (47.0-73.0); PLATELET COUNT AUTOMATED 270 10*3/uL (130-400); RED BLOOD COUNT 4.57 10*6/uL (4.10-5.10); RED CELL DISTRI WIDTH 15.4 % (0-14.5)
[2020-10-31 23:07] LABS: ALBUMIN 2.7 gm/dl (3.1-4.5); ALKALINE PHOSPHATASE 69 U/L (45-117); BUN 19 mg/dl (7-24); CHLORIDE 106 mmol/L (98-107); CREATININE 0.89 mg/dL (0.55-1.02); POTASSIUM 3.7 mmol/L (3.5-5.1); SGOT/AST 10 IU/L (3-35); SGPT/ALT 20 U/L (12-78); SODIUM 138 mmol/L (136-145); TOTAL PROTEIN 6.4 gm/dL (6.4-8.2)
[2020-10-31 23:10] LABS: ACT PARTIAL THROMBO TIME 29.8 SECONDS (20.0-32.1)
[2020-10-31 23:22] LABS: TROPONIN I < 0.015 ng/ml (<0.045)
[2020-11-01] VITALS (12 sets, daily range): BP systolic 106–134; BP diastolic 57–80
[2020-11-01] MEDS ORDERED: ALLOPURINOL100 MG PO (14:17)
[2020-11-01] MEDS ORDERED: NORVASC2.5 MG PO (19:38)
[2020-11-01] MEDS ORDERED: ATENOLOL50 M1 PO (19:40)
[2020-11-01] MEDS ORDERED: DULOXETINE HCL60 MG PO (19:41)
[2020-11-01] MEDS ORDERED: NEURONTIN400 MG PO (19:43)
[2020-11-01] MEDS ORDERED: LOSARTAN POTAS100 M1 PO (19:45)
[2020-11-02] VITALS: BP 126/90
[2020-11-02 06:30] LABS: BUN 21 mg/dl (7-24); CHLORIDE 105 mmol/L (98-107); CREATININE 0.94 mg/dL (0.55-1.02); POTASSIUM 4.4 mmol/L (3.5-5.1); SODIUM 139 mmol/L (136-145)
[2020-11-02 07:13] LABS: BASO % 0.3 % (0.0-1.0); EOS # 0.3 10*3/uL (0.0-0.4); EOS % 3.2 % (1.0-4.0); HEMATOCRIT 43.4 % (37.0-47.0); LYMPH # 1.9 10*3/uL (1.3-4.4); LYMPH % 19.4 % (27.0-41.0); MEAN CORPUSCULAR HGB CONC 32.3 g/dl (33.0-37.0); MEAN PLATELET VOLUME 10.1 fl (9.6-12.3); MONO # 1.3 10*3/uL (0.1-1.0); MONO % 13.1 % (3.0-9.0); NEUT # 6.3 10*3/uL (2.3-7.9); NEUT % 63.6 % (47.0-73.0); PLATELET COUNT AUTOMATED 247 10*3/uL (130-400); RED BLOOD COUNT 4.52 10*6/uL (4.10-5.10); WHITE BLOOD COUNT 9.9 10*3/uL (4.8-10.8)
[2020-11-02 08:00] VITALS: BP 115/65
[2020-11-02 16:00] VITALS: BP 98/50
[2020-11-02 20:00] VITALS: BP 104/56
[2020-11-03] VITALS: BP 105/57
[2020-11-03] MEDS ORDERED: ELIQUIS5 M1 PO (07:52)
[2020-11-03 08:00] VITALS: BP 97/40
== END 2020-11-03 10:37 | disposition home or self-care (01) | DRG 309 ==
LOC: ED 21:53 → 4E 11-01 00:56 → EDHOLD 11-01 00:56 → 4E 11-01 14:37
PROVIDERS: Internal Medicine; ADMIT Internal Medicine; ATTEND Internal Medicine
DX: I48.91 Unspecified atrial fibrillation (principal); Z68.43 Body mass index [BMI] 50.0-59.9, adult; E66.01 Morbid (severe) obesity due to excess calories; I10 Essential (primary) hypertension; R07.9 Chest pain, unspecified; B34.9 Viral infection, unspecified; G62.9 Polyneuropathy, unspecified; J06.9 Acute upper respiratory infection, unspecified; Z20.822 Contact with and (suspected) exposure to COVID-19; Z88.1 Allergy status to other antibiotic agents; Z90.710 Acquired absence of both cervix and uterus; Z90.49 Acquired absence of other specified parts of digestive tract; Z98.51 Tubal ligation status; Z83.3 Family history of diabetes mellitus; Z82.3 Family history of stroke; Z82.49 Family history of ischemic heart disease and other diseases of the circulatory system; Z79.01 Long term (current) use of anticoagulants

== ENCOUNTER 2020-11-13 12:59 | Inpatient (IN) | payer MEDICARE ==
[2020-11-13] VITALS (8 sets, daily range): BP systolic 112–138; BP diastolic 61–95
[~2020-11-13] VITALS: Ht 175.2 cm; Wt 143.4 kg
[~2020-11-13 12:59] MED LIST changes: +ALLOPURINOL100 MG PO; +ATENOLOL50 M1 PO; +DULOXETINE HCL60 MG PO; +ELIQUIS5 M1 PO; +LOSARTAN POTAS100 M1 PO; +NEURONTIN400 MG PO; +NORVASC2.5 MG PO
[2020-11-13 14:52] LABS: BASO % 0.3 % (0.0-1.0); EOS # 0.1 10*3/uL (0.0-0.4); EOS % 0.6 % (1.0-4.0); HEMATOCRIT 40.7 % (37.0-47.0); LYMPH # 0.9 10*3/uL (1.3-4.4); LYMPH % 7.1 % (27.0-41.0); MEAN CELL VOLUME 97.6 fl (81.0-99.0); MEAN CORPUSCULAR HGB 31.4 pg (27.0-31.0); MEAN CORPUSCULAR HGB CONC 32.2 g/dl (33.0-37.0); MEAN PLATELET VOLUME 9.4 fl (9.6-12.3); MONO % 7.6 % (3.0-9.0); NEUT # 10.6 10*3/uL (2.3-7.9); NEUT % 84.1 % (47.0-73.0); PLATELET COUNT AUTOMATED 233 10*3/uL (130-400); RED BLOOD COUNT 4.17 10*6/uL (4.10-5.10); RED CELL DISTRI WIDTH 15.2 % (0-14.5); WHITE BLOOD COUNT 12.7 10*3/uL (4.8-10.8)
[2020-11-13 15:04] LABS: ACT PARTIAL THROMBO TIME 34.3 SECONDS (20.0-32.1)
[2020-11-13 15:08] LABS: ALKALINE PHOSPHATASE 62 U/L (45-117); BUN 14 mg/dl (7-24); CHLORIDE 101 mmol/L (98-107); CREATININE 0.97 mg/dL (0.55-1.02); LIPASE 69 U/L (73-393); POTASSIUM 3.9 mmol/L (3.5-5.1); SGOT/AST 12 IU/L (3-35); SGPT/ALT 17 U/L (12-78); SODIUM 134 mmol/L (136-145); TOTAL PROTEIN 7.8 gm/dL (6.4-8.2); TROPONIN I < 0.015 ng/ml (<0.045)
[2020-11-13] MEDS ORDERED: ASPIRIN ADULT L81 M1 PO (18:48)
[2020-11-13 19:15] LABS: BILIRUBIN Negative (Negative); BLOOD Negative (Negative); CLARITY Clear (Clear); COLOR Yellow (Yellow); GLUCOSE Negative (Negative); KETONE Negative (Negative); LEUKO ESTERASE Negative (Negative); NITRITE Negative (Negative); UROBILINOGEN 0.2 E.U./dl (0.0-1.0)
[2020-11-13 19:30] LABS: BACTERIA 2+; EPITHELIAL CELLS 21-30; MUCOUS 1+; RBC 0-2 rbc/hpf (0-2); WBC 0-2 wbc/hpf (0-5)
[2020-11-14] VITALS: BP 119/80
[2020-11-14 08:00] VITALS: BP 133/54
[2020-11-14 12:00] VITALS: BP 130/58
[2020-11-14 14:20] LABS: ABG BASE EXCESS -0.8 mmol/L (-2.0-2.0); ARTERIAL BLOOD GAS PH 7.436 (7.35-7.45); ARTERIAL BLOOD GAS PO2 61.7 (80-90)
[2020-11-14 16:00] VITALS: BP 101/69
[2020-11-14 20:00] VITALS: BP 107/44
[2020-11-15] VITALS: BP 126/64
[2020-11-15 08:00] VITALS: BP 130/54
[2020-11-15 13:00] VITALS: BP 117/52
[2020-11-15 16:00] VITALS: BP 122/46
[2020-11-15 20:00] VITALS: BP 126/83
[2020-11-16] VITALS: BP 108/56
[2020-11-16 08:00] VITALS: BP 122/58
[2020-11-16 12:00] VITALS: BP 118/62
[2020-11-16 16:00] VITALS: BP 118/60
[2020-11-16 20:00] VITALS: BP 125/56
[2020-11-17] VITALS: BP 105/55
[2020-11-17 08:00] VITALS: BP 119/53
[2020-11-17 12:00] VITALS: BP 113/56
[2020-11-17 16:00] VITALS: BP 125/48
[2020-11-17 20:00] VITALS: BP 98/78
[2020-11-18] VITALS: BP 105/45
[2020-11-18 06:09] LABS: BASO # 0.1 10*3/uL (0.0-0.1); BASO % 0.8 % (0.0-1.0); EOS # 0.4 10*3/uL (0.0-0.4); EOS % 6.5 % (1.0-4.0); HEMATOCRIT 37.6 % (37.0-47.0); LYMPH % 30.4 % (27.0-41.0); MEAN CELL VOLUME 97.2 fl (81.0-99.0); MEAN CORPUSCULAR HGB 31.3 pg (27.0-31.0); MEAN CORPUSCULAR HGB CONC 32.2 g/dl (33.0-37.0); MEAN PLATELET VOLUME 9.5 fl (9.6-12.3); MONO # 0.6 10*3/uL (0.1-1.0); MONO % 9.6 % (3.0-9.0); NEUT # 3.4 10*3/uL (2.3-7.9); NEUT % 52.1 % (47.0-73.0); PLATELET COUNT AUTOMATED 362 10*3/uL (130-400); RED BLOOD COUNT 3.87 10*6/uL (4.10-5.10); RED CELL DISTRI WIDTH 15.3 % (0-14.5); WHITE BLOOD COUNT 6.6 10*3/uL (4.8-10.8)
[2020-11-18 06:33] LABS: BUN 26 mg/dl (7-24); CHLORIDE 105 mmol/L (98-107); CREATININE 0.86 mg/dL (0.55-1.02); POTASSIUM 4.7 mmol/L (3.5-5.1); SODIUM 137 mmol/L (136-145)
[2020-11-18 08:00] VITALS: BP 123/43
[2020-11-18 12:00] VITALS: BP 131/81
[2020-11-18 16:00] VITALS: BP 123/45
[2020-11-18 20:00] VITALS: BP 113/47
[2020-11-19] VITALS: BP 114/48
[2020-11-19 08:00] VITALS: BP 106/57
[2020-11-19 12:00] VITALS: BP 110/76
[2020-11-19 16:00] VITALS: BP 124/60
[2020-11-19 20:00] VITALS: BP 117/42
[2020-11-20] VITALS: BP 122/74; BP 147/80
[2020-11-20 05:53] LABS: BASO % 0.5 % (0.0-1.0); EOS # 0.4 10*3/uL (0.0-0.4); EOS % 5.7 % (1.0-4.0); HEMATOCRIT 38.6 % (37.0-47.0); LYMPH # 2.1 10*3/uL (1.3-4.4); LYMPH % 28.3 % (27.0-41.0); MEAN CORPUSCULAR HGB 30.8 pg (27.0-31.0); MEAN CORPUSCULAR HGB CONC 31.1 g/dl (33.0-37.0); MEAN PLATELET VOLUME 9.1 fl (9.6-12.3); MONO # 0.8 10*3/uL (0.1-1.0); MONO % 10.7 % (3.0-9.0); NEUT # 3.9 10*3/uL (2.3-7.9); NEUT % 53.7 % (47.0-73.0); PLATELET COUNT AUTOMATED 371 10*3/uL (130-400); RED CELL DISTRI WIDTH 15.5 % (0-14.5); WHITE BLOOD COUNT 7.4 10*3/uL (4.8-10.8)
[2020-11-20 06:14] LABS: ALBUMIN 2.5 gm/dl (3.1-4.5); BUN 27 mg/dl (7-24); CHLORIDE 106 mmol/L (98-107); POTASSIUM 5.1 mmol/L (3.5-5.1); SGOT/AST 11 IU/L (3-35); SODIUM 137 mmol/L (136-145)
[2020-11-20 06:27] LABS: ALKALINE PHOSPHATASE 80 U/L (45-117); SGPT/ALT 23 U/L (12-78); TOTAL PROTEIN 6.7 gm/dL (6.4-8.2)
[2020-11-20 08:00] VITALS: BP 119/58
[2020-11-20] MEDS ORDERED: SYMB80 INH (08:29)
[2020-11-20] MEDS ORDERED: Ipratropium Brom3 ML NEB (08:29)
== END 2020-11-20 13:18 | disposition home health service (06) | DRG 554 ==
LOC: ED 12:59 → 5E 18:22 → EDHOLD 18:22 → 4E 20:24 → 5E 20:34
PROVIDERS: Internal Medicine; Internal Medicine Critical Care Medicine; Physician Assistant; ADMIT Internal Medicine; ATTEND Internal Medicine
PROC: 3E0U33Z Introduction of Anti-inflammatory into Joints, Percutaneous Approach (ICD-10-PCS; principal; 2020-11-16)
DX: M17.12 Unilateral primary osteoarthritis, left knee (principal); J98.11 Atelectasis; E66.2 Morbid (severe) obesity with alveolar hypoventilation; J45.901 Unspecified asthma with (acute) exacerbation; Z68.43 Body mass index [BMI] 50.0-59.9, adult; I48.0 Paroxysmal atrial fibrillation; R62.7 Adult failure to thrive; J44.9 Chronic obstructive pulmonary disease, unspecified; M1A.9XX0 Chronic gout, unspecified, without tophus (tophi); I10 Essential (primary) hypertension; N32.81 Overactive bladder; Z96.651 Presence of right artificial knee joint; R26.2 Difficulty in walking, not elsewhere classified; G62.9 Polyneuropathy, unspecified; Z20.822 Contact with and (suspected) exposure to COVID-19; Z79.01 Long term (current) use of anticoagulants; Z88.1 Allergy status to other antibiotic agents; Z88.8 Allergy status to other drugs, medicaments and biological substances; Z79.899 Other long term (current) drug therapy; Z90.49 Acquired absence of other specified parts of digestive tract; Z90.710 Acquired absence of both cervix and uterus

== ENCOUNTER → 2021-06-17 | Outpatient (CLI) | payer MEDICARE ==
[~2021-06-17] MED LIST changes: +ASPIRIN ADULT L81 M1 PO; +Ipratropium Brom3 ML NEB; +SYMB80 INH
== END | disposition home or self-care (01) ==
LOC: COVID19 15:25
PROVIDERS: ATTEND Student in an Organized Health Care Education/Training Program
DX: Z11.52 Encounter for screening for COVID-19 (principal)

== ENCOUNTER → 2021-10-01 | Outpatient (CLI) | payer MEDICARE | END | disposition home or self-care (01) | LOC: RAD 09:00 | PROVIDERS: ATTEND Internal Medicine | DX: Z78.0 Asymptomatic menopausal state (principal) ==

== ENCOUNTER 2022-01-15 16:42 | Emergency (ER) | payer MEDICARE ==
[~2022-01-15] VITALS: Ht 175.2 cm; Wt 151.0 kg
== END 2022-01-15 20:26 | disposition home or self-care (01) ==
LOC: ED 16:42
DX: Z01.30 Encounter for examination of blood pressure without abnormal findings (principal); Z90.49 Acquired absence of other specified parts of digestive tract; Z98.51 Tubal ligation status; Z79.899 Other long term (current) drug therapy; Z88.1 Allergy status to other antibiotic agents

== ENCOUNTER → 2022-05-23 | Outpatient (CLI) | payer OTHER ==
[2022-05-23 13:40] LABS: BASO % 0.6 % (0.0-1.0); EOS # 0.3 10*3/uL (0.0-0.4); EOS % 4.6 % (1.0-4.0); HEMATOCRIT 42.5 % (37.0-47.0); LYMPH # 1.2 10*3/uL (1.3-4.4); LYMPH % 18.1 % (27.0-41.0); MEAN CELL VOLUME 98.2 fl (81.0-99.0); MEAN CORPUSCULAR HGB 32.3 pg (27.0-31.0); MEAN CORPUSCULAR HGB CONC 32.9 g/dl (33.0-37.0); MEAN PLATELET VOLUME 9.5 fl (9.6-12.3); MONO # 0.6 10*3/uL (0.1-1.0); MONO % 8.4 % (3.0-9.0); NEUT # 4.6 10*3/uL (2.3-7.9); PLATELET COUNT AUTOMATED 237 10*3/uL (130-400); RED BLOOD COUNT 4.33 10*6/uL (4.10-5.10); RED CELL DISTRI WIDTH 14.6 % (0-14.5); WHITE BLOOD COUNT 6.8 10*3/uL (4.8-10.8)
[2022-05-23 14:01] LABS: ALKALINE PHOSPHATASE 57 U/L (46-116); BUN 10 mg/dl (9-23); CHLORIDE 106 mmol/L (98-107); CHOLESTEROL 172 mg/dL (<200); CREATININE 0.88 mg/dL (0.55-1.02); LDL CHOLESTEROL 104 mg/dL (9-159); POTASSIUM 3.8 mmol/L (3.4-5.1); SGPT/ALT 12 U/L (10-49); SODIUM 139 mmol/L (136-145); TRIGLYCERIDES 135 mg/dl (<150)
[2022-05-23 14:02] LABS: T3 UPTAKE 30.2 % (22.4-36.7); TOTAL PROTEIN 6.8 gm/dL (6.0-8.0)
[2022-05-23 14:03] LABS: THYROID STIM HORMONE (HS) 2.833 uIU/ml (0.550-4.780)
[2022-05-23 14:04] LABS: FREE T4 0.92 ng/dl (0.89-1.76)
[2022-05-23 14:18] LABS: VITAMIN D, 25-HYDROXY 25.6 ng/mL (30-100)
== END | disposition home or self-care (01) ==
LOC: LAB 13:00
PROVIDERS: ATTEND Internal Medicine
DX: E55.9 Vitamin D deficiency, unspecified (principal); I10 Essential (primary) hypertension; R73.9 Hyperglycemia, unspecified; Z23 Encounter for immunization; Z13.89 Encounter for screening for other disorder; Z13.0 Encounter for screening for diseases of the blood and blood-forming organs and certain disorders involving the immune mechanism; Z13.6 Encounter for screening for cardiovascular disorders; Z13.29 Encounter for screening for other suspected endocrine disorder

== ENCOUNTER → 2022-08-07 | Outpatient (CLI) | payer OTHER | END | disposition home or self-care (01) | LOC: MAMMO 08-06 11:30 | PROVIDERS: ATTEND Internal Medicine | DX: Z12.31 Encounter for screening mammogram for malignant neoplasm of breast (principal); N64.9 Disorder of breast, unspecified ==

== ENCOUNTER → 2022-11-19 | Outpatient (CLI) | payer OTHER | END | disposition home or self-care (01) | LOC: CT 01:43 | PROVIDERS: ATTEND Internal Medicine | DX: K43.9 Ventral hernia without obstruction or gangrene (principal); Z90.49 Acquired absence of other specified parts of digestive tract ==

== ENCOUNTER → 2023-04-03 | Outpatient (CLI) | payer OTHER | END | disposition home or self-care (01) | LOC: ORTHO 00:45 | PROVIDERS: ATTEND Orthopaedic Surgery | DX: M25.471 Effusion, right ankle (principal) ==

== ENCOUNTER → 2023-12-31 | Outpatient (CLI) | payer OTHER ==
[~2023-12-31] MED LIST changes: +IOHEXOL 350 MG/ML 100 ML VIAL IV ONE
[2023-12-31 14:33] LABS: BASO % 0.4 % (0.0-1.0); EOS # 0.1 10*3/uL (0.0-0.4); EOS % 1.9 % (1.0-4.0); HEMATOCRIT 41.8 % (37.0-47.0); LYMPH # 1.3 10*3/uL (1.3-4.4); LYMPH % 19.1 % (27.0-41.0); MEAN CORPUSCULAR HGB 32.1 pg (27.0-31.0); MEAN CORPUSCULAR HGB CONC 32.1 g/dl (33.0-37.0); MEAN PLATELET VOLUME 9.7 fl (9.6-12.3); MONO # 0.5 10*3/uL (0.1-1.0); MONO % 7.9 % (3.0-9.0); NEUT # 4.8 10*3/uL (2.3-7.9); NEUT % 70.4 % (47.0-73.0); PLATELET COUNT AUTOMATED 203 10*3/uL (130-400); RED BLOOD COUNT 4.18 10*6/uL (4.10-5.10); RED CELL DISTRI WIDTH 14.6 % (0-14.5); WHITE BLOOD COUNT 6.8 10*3/uL (4.8-10.8)
[2023-12-31 14:35] LABS: BILIRUBIN Negative (Negative); BLOOD Negative (Negative); CLARITY Clear (Clear); COLOR Yellow (Yellow); GLUCOSE Negative (Negative); KETONE Negative (Negative); LEUKO ESTERASE Negative (Negative); NITRITE Negative (Negative); UROBILINOGEN 0.2 E.U./dl (0.0-1.0)
[2023-12-31 14:56] LABS: POTASSIUM 4.7 mmol/L (3.4-5.1); TOTAL PROTEIN 6.6 gm/dL (6.0-8.0)
[2023-12-31 14:59] LABS: BACTERIA TRACE
== END | disposition home or self-care (01) ==
LOC: LAB 12:53 → CT 13:00
PROVIDERS: ATTEND Urology
DX: N28.1 Cyst of kidney, acquired (principal); K44.9 Diaphragmatic hernia without obstruction or gangrene; M47.816 Spondylosis without myelopathy or radiculopathy, lumbar region; M54.50 Low back pain, unspecified; N39.0 Urinary tract infection, site not specified; N32.81 Overactive bladder; Z96.82 Presence of neurostimulator

== ENCOUNTER → 2024-01-07 | Outpatient (CLI) | payer OTHER ==
[~2024-01-07] MED LIST changes: -IOHEXOL 350 MG/ML 100 ML VIAL IV ONE
== END | disposition home or self-care (01) ==
LOC: CT 14:39
PROVIDERS: ATTEND Internal Medicine
DX: M51.37 Other intervertebral disc degeneration, lumbosacral region (principal); M54.40 Lumbago with sciatica, unspecified side

== ENCOUNTER 2024-07-08 15:15 | Emergency (ER) | payer OTHER ==
[2024-07-08 16:08] LABS: BASO % 0.5 % (0.0-1.0); EOS % 0.6 % (1.0-4.0); HEMATOCRIT 39.2 % (37.0-47.0); MEAN CORPUSCULAR HGB 31.9 pg (27.0-31.0); MEAN CORPUSCULAR HGB CONC 31.9 g/dl (33.0-37.0); MEAN PLATELET VOLUME 9.3 fl (9.6-12.3); MONO # 0.9 10*3/uL (0.1-1.0); MONO % 14.1 % (3.0-9.0); NEUT # 4.7 10*3/uL (2.3-7.9); NEUT % 75.8 % (47.0-73.0); PLATELET COUNT AUTOMATED 223 10*3/uL (130-400); RED BLOOD COUNT 3.92 10*6/uL (4.10-5.10); WHITE BLOOD COUNT 6.2 10*3/uL (4.8-10.8)
[2024-07-08 16:23] LABS: BUN 14 mg/dl (9-23); CHLORIDE 99 mmol/L (98-107); POTASSIUM 4.1 mmol/L (3.4-5.1)
== END 2024-07-08 17:00 | disposition home or self-care (01) ==
LOC: ED 15:15
PROVIDERS: Nurse Practitioner Family
DX: M25.552 Pain in left hip (principal); I10 Essential (primary) hypertension; F41.9 Anxiety disorder, unspecified; F32.A Depression, unspecified; M19.90 Unspecified osteoarthritis, unspecified site; J45.909 Unspecified asthma, uncomplicated; Z88.1 Allergy status to other antibiotic agents; Z90.710 Acquired absence of both cervix and uterus; Z90.49 Acquired absence of other specified parts of digestive tract; Z98.890 Other specified postprocedural states; W01.0XXA Fall on same level from slipping, tripping and stumbling without subsequent striking against object, initial encounter

== ENCOUNTER 2024-12-13 12:33 | Inpatient (IN) | payer OTHER ==
[~2024-12-13] VITALS: Ht 175.2 cm; Wt 151.8 kg
[2024-12-13 12:45] VITALS: BP 136/89
[2024-12-13] MEDS ORDERED: FUROSEMIDE40 MG PO (13:00)
[2024-12-13] MEDS ORDERED: CYMBALTA30 MG PO (13:02)
[2024-12-13] MEDS ORDERED: CLONIDINE HCL0.1 M1 PO (13:04)
[2024-12-13] MEDS ORDERED: NEURONTIN300 MG PO (13:04)
[2024-12-13] MEDS ORDERED: MULTIVITAMIN1 EACH PO (13:05)
[2024-12-13 13:38] LABS: BASO % 0.7 % (0.0-1.0); EOS # 0.2 10*3/uL (0.0-0.4); EOS % 3.2 % (1.0-4.0); MEAN CORPUSCULAR HGB 31.7 pg (27.0-31.0); MONO # 0.8 10*3/uL (0.1-1.0); MONO % 12.9 % (3.0-9.0); NEUT # 3.8 10*3/uL (2.3-7.9); NEUT % 64.3 % (47.0-73.0); PLATELET COUNT AUTOMATED 207 10*3/uL (130-400); RED BLOOD COUNT 4.04 10*6/uL (4.10-5.10); RED CELL DISTRI WIDTH 14.8 % (0-14.5)
[2024-12-13 14:02] LABS: ALKALINE PHOSPHATASE 60 U/L (46-116); BUN 13 mg/dl (9-23); CHLORIDE 104 mmol/L (98-107); CPK 44 U/L (34-171); POTASSIUM 4.1 mmol/L (3.4-5.1); SGPT/ALT 12 U/L (5-49); TOTAL PROTEIN 6.5 gm/dL (6.0-8.0)
[2024-12-13] MEDS ORDERED: ASPIRIN 325 MG ENTERIC COATED PO ONE (14:25)
[2024-12-13] MEDS ORDERED: FUROSEMIDE 40 MG/4 ML VIAL IV ONE (14:25)
[2024-12-13 15:24] LABS: BILIRUBIN Negative (Negative); BLOOD Negative (Negative); CLARITY Clear (Clear); COLOR Yellow (Yellow); GLUCOSE Negative (Negative); KETONE Negative (Negative); LEUKO ESTERASE Negative (Negative); NITRITE Positive (Negative); PH 6.5 (4.5-8.0); SPECIFIC GRAVITY <= 1.005 (1.001-1.030); UROBILINOGEN 0.2 E.U./dl (0.0-1.0)
[2024-12-13 15:33] LABS: BACTERIA 4+
[2024-12-13 16:00] VITALS: BP 137/52
[2024-12-13] MEDS ORDERED: Albuterol Sulf/Ipratropium 3 ML VIAL NEB SCH (17:05)
[2024-12-13] MEDS ORDERED: BUDESONIDE 0.5 MG AMP NEB SCH (17:20)
[2024-12-13] MEDS ORDERED: GABAPENTIN 300 MG CAP PO SCH (18:00)
[2024-12-13] MEDS ORDERED: BUMETANIDE 1 MG/4 ML VIAL IV SCH (18:00)
[2024-12-13 18:46] VITALS: BP 151/79
[2024-12-13 19:48] VITALS: BP 150/75
[2024-12-13] MEDS ORDERED: APIXABAN 5 MG TAB PO SCH (22:00)
[2024-12-13] MEDS ORDERED: Budesonide/Formoterol Fumarate 80/4.5 inhaler INH SCH (22:00)
[2024-12-14] VITALS: BP 132/54
[2024-12-14 08:00] VITALS: BP 154/83
[2024-12-14 08:46] LABS: BUN 12 mg/dl (9-23); CHLORIDE 99 mmol/L (98-107); POTASSIUM 3.4 mmol/L (3.4-5.1)
[2024-12-14] MEDS ORDERED: cloNIDine Hydrochloride 0.1 MG TAB PO SCH (10:00)
[2024-12-14] MEDS ORDERED: ATENOLOL 50 MG TAB PO SCH (10:00)
[2024-12-14] MEDS ORDERED: ALLOPURINOL 100 MG TAB PO SCH (10:00)
[2024-12-14] MEDS ORDERED: Losartan Potassium 50 MG TAB PO SCH (10:00)
[2024-12-14] MEDS ORDERED: DULoxetine Hydrochloride 30 MG CAP PO SCH (10:00)
[2024-12-14 12:00] VITALS: BP 123/55
[2024-12-14 16:00] VITALS: BP 130/58
[2024-12-14 20:00] VITALS: BP 127/66
[2024-12-14 23:44] VITALS: BP 124/68
[2024-12-15 07:23] LABS: BUN 15 mg/dl (9-23); CHLORIDE 99 mmol/L (98-107); POTASSIUM 3.6 mmol/L (3.4-5.1)
[2024-12-15 08:00] VITALS: BP 123/85
[2024-12-15] MEDS ORDERED: IOHEXOL 300 MG/ML 100 ML VIAL IV ONE (08:15)
[2024-12-15] MEDS ORDERED: IOHEXOL 300 MG/ML 100 ML VIAL ONE (08:37)
[2024-12-15] MEDS ORDERED: methylPREDNISolone sod succ 40 MG VIAL IV SCH (10:00)
[2024-12-15] MEDS ORDERED: Dextromethorphan Hydrobromid 1 TAB TAB PO SCH (10:00)
[2024-12-15] MEDS ORDERED: Sulfamethoxazole/Trimethopri 1 TAB TAB PO SCH (10:00)
[2024-12-15 12:00] VITALS: BP 160/78
[2024-12-15 16:00] VITALS: BP 159/79
[2024-12-15 20:00] VITALS: BP 165/78
[2024-12-16] VITALS: BP 139/68
[2024-12-16 07:16] LABS: BASO % 0.3 % (0.0-1.0); EOS % 0.3 % (1.0-4.0); HEMATOCRIT 42.1 % (37.0-47.0); MEAN CELL VOLUME 97.5 fl (81.0-99.0); MEAN CORPUSCULAR HGB 31.9 pg (27.0-31.0); MEAN CORPUSCULAR HGB CONC 32.8 g/dl (33.0-37.0); MEAN PLATELET VOLUME 10.2 fl (9.6-12.3); MONO # 0.3 10*3/uL (0.1-1.0); MONO % 3.7 % (3.0-9.0); NEUT # 6.7 10*3/uL (2.3-7.9); NEUT % 84.9 % (47.0-73.0); PLATELET COUNT AUTOMATED 239 10*3/uL (130-400); RED BLOOD COUNT 4.32 10*6/uL (4.10-5.10); RED CELL DISTRI WIDTH 14.6 % (0-14.5); WHITE BLOOD COUNT 7.9 10*3/uL (4.8-10.8)
[2024-12-16 07:47] LABS: ALKALINE PHOSPHATASE 60 U/L (46-116); BUN 19 mg/dl (9-23); CHLORIDE 98 mmol/L (98-107); SGPT/ALT 16 U/L (5-49); TOTAL PROTEIN 7.2 gm/dL (6.0-8.0)
[2024-12-16] MEDS ORDERED: BUMETANIDE2 MG PO (07:58)
[2024-12-16] MEDS ORDERED: PREDNISONE5 MG PO (07:58)
[2024-12-16] MEDS ORDERED: SEPTDS PO (07:58)
[2024-12-16] MEDS ORDERED: OMEPRAZOLE MAGN20 MG PO (07:58)
[2024-12-16 08:00] VITALS: BP 146/60
[2024-12-16 08:12] LABS: POTASSIUM 4.6 mmol/L (3.4-5.1)
[2024-12-16 12:00] VITALS: BP 123/71
[2024-12-16] MEDS ORDERED: OMEPRAZOLE 20 MG CAP PO SCH (16:30)
== END 2024-12-16 14:50 | disposition home or self-care (01) | DRG 291 ==
LOC: ED 12:33 → 5E 14:26 → EDHOLD 14:26 → 5E 19:38
PROVIDERS: Emergency Medicine; ADMIT Internal Medicine; ATTEND Internal Medicine
DX: I11.0 Hypertensive heart disease with heart failure (principal); I50.31 Acute diastolic (congestive) heart failure; N39.0 Urinary tract infection, site not specified; Z68.43 Body mass index [BMI] 50.0-59.9, adult; J98.11 Atelectasis; G47.33 Obstructive sleep apnea (adult) (pediatric); E66.01 Morbid (severe) obesity due to excess calories; I48.0 Paroxysmal atrial fibrillation; G62.9 Polyneuropathy, unspecified; J20.9 Acute bronchitis, unspecified; B96.20 Unspecified Escherichia coli [E. coli] as the cause of diseases classified elsewhere; N32.81 Overactive bladder; K22.89 Other specified disease of esophagus; Z88.0 Allergy status to penicillin; Z88.8 Allergy status to other drugs, medicaments and biological substances; Z91.09 Other allergy status, other than to drugs and biological substances; Z79.899 Other long term (current) drug therapy; Z79.01 Long term (current) use of anticoagulants; Z79.2 Long term (current) use of antibiotics; Z90.711 Acquired absence of uterus with remaining cervical stump; Z83.3 Family history of diabetes mellitus; Z82.3 Family history of stroke; Z82.49 Family history of ischemic heart disease and other diseases of the circulatory system